=== PATIENT | female | born 1990 | race Caucasian/White ===

== ENCOUNTER 2021-02-26 18:40 | Emergency (ER) | payer OTHER ==
[2021-02-26 18:58] VITALS: RESP 16
[2021-02-26] MEDS ORDERED: IBUPROFEN 600 MG TAB PO STA (19:00)
--- NOTE | 2021-02-26 19:28 | XR ---
Result: History: Pain. Comparison: None available. Technique: 3 views of the right ankle. Findings: There is soft tissue edema overlying the lateral malleolus. No acute fracture or dislocation is seen. There is mild widening of the medial clear space. There is small dorsal navicular osteophyte. Otherw ise joint spaces are preserved. Impression: Soft tissue edema without acute osseous abnormality. Mild widening of the medial clear space, suggestive of ligamentous injury.
--- NOTE | 2021-02-26 20:03 | ED ---
Lower Extremity Injury HPI - General Chief Complaint: Extremity Injury, Lower Stated Complaint: Rt Ankle Injury Time Seen by Provider: 02/26/21 18:46 Source: patient Mode of arrival: wheelchair Limitations: no limitations - History of Present Illness Initial Comments: Patient is a 30-year-old female presenting to the emergency Department with complaints of right ankle pain after she stepped in a hole and grass about an hour prior to arrival. She denies any pain in the right foot, denies any previous injuries or surgeries to the right ankle. She did not have any other injuries from this trip and fall. She has no further complaints. - Related Data Previous Rx's Medication Instructions Recorded Amoxicillin 500 mg PO Q8H 10 Days capsule 04/13/16 Allergies Allergy/AdvReac Type Severity Reaction Status Date / Time No Known Allergies Allergy Verified 04/13/16 12:59 Review of Systems ROS Statement: Those systems with pertinent positive or pertinent negative responses have been documented in the HPI. ROS Other: All systems not noted in ROS Statement are negative. Past Medical History Past Medical History: No Reported History Additional Past Medical History / Comment(s): Patient has a history of spn-yuhwszj-arjihjriv diabetes this . History of Any Multi-Drug Resistant Organisms: None Reported Past Surgical History: Section Past Anesthesia/Blood Transfusion Reactions: No Reported Reaction Past Psychological History: No Psychological Hx Reported Smoking Status: Never smoker Past Alcohol Use History: None Reported Past Drug Use History: None Reported - Past Family History Mother Family Medical History: Cancer Brother(s) Family Medical History: Cancer Father Family Medical History: Musculoskeletal Disorder General Exam - General Exam Comments Initial Comments: GENERAL: Patient is well-developed and well-nourished. Patient is nontoxic and in no acute distress. HEAD: Atraumatic, normocephalic. LUNGS: Unlabored respirations. Breath sounds clear to auscultation bilaterally and equal. No wheezes rales or rhonchi. HEART: Regular rate and rhythm without murmurs, rubs or gallops. MUSCULOSKELETAL: Pain with palpation of the right lateral malleolus, she does have moderate swelling present, decreased range of motion secondary to pain. She is neurovascular intact. No pain of the right foot or right lower leg. No clubbing or cyanosis. NEUROLOGICAL: Patient is alert and oriented x 3. SKIN: Warm, Dry, normal turgor, no rashes or lesions noted. Limitations: no limitations Course Vital Signs 02/26/21 18:51 Pulse Rate 71 Respiratory 16 Rate Blood Pressure 114/54 O2 Sat by Pulse 98 Oximetry Procedures - Orthopedic Splinting/Casting Injury #1 Side: right Lower Extremity Injury Location: ankle Lower Extremity Immobilizer: stirrup splint, Elia wrap Medical Decision Making - Medical Decision Making Patient is a 22-year-old female here with right ankle injury after she stepped in a hole on grass about an hour prior to arrival. X-rays reveal no acute fracture dislocations, most likely ligament injury. Discussed these findings with her. Patient was given an ankle stirrup splint as well as an Elia wrap. She is given for discomfort. She is stable for discharge. She'll follow up with her PCP if symptoms do not improve within one to 2 weeks. She is agreeable to this plan of care. Disposition Clinical Impression: Moderate right ankle sprain Disposition: HOME SELF-CARE Condition: Stable Instructions (If sedation given, give patient instructions): Ankle Sprain (ED) Additional Instructions: Please return to the Emergency Department if symptoms worsen or any other concerns. Use ankle splint as discussed. Use Elia wrap for compression, elevation and Tylenol Motrin for any discomfort. Follow-up with your PCP if symptoms do not improve in 1-2 weeks. Is patient prescribed a controlled substance at d/c from ED?: No Referrals: Prisca Barnes MD [Primary Care Provider] - 1-2 days Time of Disposition: 20:03
[2021-02-26 20:34] VITALS: BP 125/61; PULSE 74; TEMP 98.2
== END 2021-02-26 20:33 | disposition home or self-care (01) ==
LOC: EC 18:40
DX: S93.401A Sprain of unspecified ligament of right ankle, initial encounter (principal); W18.42XA Slipping, tripping and stumbling without falling due to stepping into hole or opening, initial encounter
CPT/HCPCS: 29515; 99283

== ENCOUNTER → 2024-05-09 | Outpatient (CLI) | payer OTHER ==
--- NOTE | 2024-05-09 09:24 | MM ---
Reason for Exam: Clinical finding. Indicated Problems: Lump or thickening. Patient History: Menarche at age 17. First Full-Term at age 24. Mother had breast cancer under age 50. Mother had breast cancer at or over age 50. Last menstrual period: 05/02/2024 Tissue Density: The breasts are extremely dense, which lowers the sensitivity of mammography. Findings: Analyzed By CAD. Partially obscured 1.3 cm mass in the setting of clinical concern left breast at the approximate 6 to 7:00 position 7 cm from the nipple. Ultrasound is advised. Overall Assessment: Incomplete: need additional imaging evaluation, BI-RAD 0 Management: Diagnostic Breast Ultrasound of the left breast. . Results were given to the patient verbally at the time of exam. Patient should continue monthly self-breast exams. A clinical breast exam by your physician is recommended on an annual basis. This exam should not preclude additional follow-up of suspicious palpable abnormalities. Note on Ruby scores and lifetime risk: 1. A Ruby score greater than 3% is considered moderate risk. If this is the case, consider specialist referral to assess eligibility for a risk reducing agent. 2. If overall lifetime risk for the development of breast cancer is 20% or higher, the patient may qualify for future screening with alternating mammogram and breast MRI. [facility], , 05/09/2024 9:14 AM. Electronically signed and approved by: Jeovany Randhawa M.D. Radiologis
--- NOTE | 2024-05-09 09:42 | USB ---
Reason for Exam: Clinical finding. Patient History: Menarche at age 17. First Full-Term at age 24. Mother had breast cancer under age 50. Mother had breast cancer at or over age 50. Technique: Method: Targeted. Findings: The area of palpable concern of the left breast, the axilla of the left breast and the retroareolar of the left breast were scanned. Solid ovoid mass the site of clinical concern left breast 6 cm from the nipple 1.7 x 0.9 cm. While this likely reflects a fibroadenoma tissue diagnosis is recommended. No additional masses seen. Overall Assessment: Suspicious, BI-RAD 4 Management: Ultrasound Core Biopsy of the left breast. A clinical breast exam by your physician is recommended on an annual basis and results should be correlated with mammographic findings. This exam should not preclude additional follow-up of suspicious palpable abnormalities. Results were given to the patient verbally at the time of exam. [facility], , 05/09/2024 9:36 AM. Electronically signed and approved by: Jeovany Randhawa M.D. Radiologis
== END | disposition home or self-care (01) ==
LOC: RADMAMWWP 08:42
PROVIDERS: ATTEND Internal Medicine
CPT/HCPCS: 77062; 77066

== ENCOUNTER → 2024-05-22 | Day surgery (SDC) | payer OTHER ==
--- NOTE | 2024-05-25 11:40 | MM ---
Reason for Exam: Post Procedure Mammogram. Last screening mammogram was performed less than 1 month ago. Patient History: Menarche at age 17. First Full-Term at age 24. Mother had breast cancer under age 50. Mother had breast cancer at or over age 50. Prior Study Comparison: 05/09/2024 Bilateral MG 3D diag mammo w/cad [facility], [facility]. Tissue Density: Left: The breasts are extremely dense, which lowers the sensitivity of mammography. Pathology Description: The procedure of ultrasound guided core biopsy was explained to the patient. Benefits, alternatives, and risks were discussed. An informed consent was then obtained. A timeout was performed. The patient was placed in supine positioning for imaging and for the procedure. The overlying skin was prepped and draped in usual sterile fashion. Lidocaine was used as anesthetic into the skin and subcutaneous tissue up to area of concern in the left breast. A small skin amanda was made with surgical scalpel. Under ultrasound guidance, a 12-gauge vacuum assisted biopsy gun device was used to obtain 6 core samples. A biopsy clip was left in lesion. Hydromark coil core marker was placed. The patient tolerated the procedure well without any immediate complication. The patient was kept in the radiology department for short stay after the procedure and then discharged home in stable condition. Postprocedure mammogram: The patient was transferred to mammography for physician ordered post procedure mammogram for clip placement verification. Post procedure mammogram demonstrates the clip in appropriate placement on ML view. Impression: Successful ultrasound guided core biopsy of area of concern in the left breast, full pathology results to follow. Recommendations: 1. Recommendations are pending pathology results. [facility], , 05/22/2024 1:52 PM. Pathology Results: Result: Benign, Fibroadenoma. Pathology and radiology were reviewed. Findings are concordant. LEFT BREAST, 6:00, ULTRASOUND GUIDED CORE BIOPSY: Benign fibroadenoma. Overall Assessment: Benign Assessment: MG diagnostic mammo LT wo CAD. - Left: Benign, BI-RAD 2. Management: Diagnostic Mammogram of the left breast in 6 months. Electronically signed and approved by: Bryan Ovalles D.O. Radiologis
== END ==
LOC: RADUSWWP 12:48
PROVIDERS: ATTEND Internal Medicine
DX: D24.2 Benign neoplasm of left breast (principal)
CPT/HCPCS: 77065; 19083; A4648; 88305